=== PATIENT | female | born 1975 | race Caucasian/White ===

== ENCOUNTER 2024-01-03 03:10 | Inpatient (IN) | payer MEDICAID ==
[~2024-01-03] VITALS: Ht 170.2 cm; Wt 99.8 kg
[2024-01-03 03:24] VITALS: BP 153/90; PULSE 83; RESP 18; TEMP 98.1; O2SAT 96
[2024-01-03 03:56] LABS: APPEARANCE,URINE CLEAR (CLEAR); BILIRUBIN,URINE 2+ (NEGATIVE); BLOOD, URINE TRACE-I (NEGATIVE); COLOR,URINE YELLOW (YELLOW); LEUKOCYTE ESTERASE ,URINE NEGATIVE (NEGATIVE); NITRITE, URINE NEGATIVE (NEGATIVE); PROTEIN,URINE 1+ (NEGATIVE); UGLUCOSE NEGATIVE (NEGATIVE)
[2024-01-03 03:58] LABS: ICTOTEST POSITIVE (NEGATIVE)
[2024-01-03 04:00] LABS: BACTERIA,URINE 10-30 (MOD) /HPF (None Seen); MUCUS,URINE 1+ /LPF (None Seen); SQUAMOUS EPITHELIAL CELL,UR 0-3 (FEW) /LPF (0-3 (FEW)); WBC,URINE 0-5 /HPF (0-5)
[2024-01-03] MEDS: KETOROLAC 30 MG/ML VIAL IM ONE (04:03)
[2024-01-03 04:08] LABS: BASOPHILS % (AUTO) 0.3 % (0.0-2.0); EOSINOPHILS % (AUTO) 0.3 % (0.0-4.0); HEMATOCRIT 39.6 % (36-48); HEMOGLOBIN 13.4 g/dL (12.0-16.0); LYMPHOCYTES # (AUTO) 0.7 K/uL (2.5-16.5); LYMPHOCYTES % (AUTO) 9.5 % (20.5-51.1); MEAN CORPUSCULAR HEMOGLOBIN 27 pg (27-31); MEAN CORPUSCULAR HGB CONC 34 g/dL (33-37); MEAN CORPUSCULAR VOLUME 80.7 fL (80-94); MONOCYTES # (AUTO) 0.4 K/uL (0.8-1.0); NEUTROPHILS # (AUTO) 6.2 K/uL (1.8-7.7); NEUTROPHILS % (AUTO) 84.9 % (42.2-75.2); PLATELET COUNT (AUTO) 133 K/uL (140-450); RED CELL DISTRIBUTION WIDTH 14.3 % (11.6-13.7); WHITE BLOOD COUNT (AUTO) 7.3 K/uL (4.8-10.8)
[2024-01-03 04:24] LABS: ANION GAP 10.4 (8-16); CALCIUM 8.8 mg/dL (8.5-10.1); CARBON DIOXIDE 28.4 mmol/L (21-32); CREATININE 0.7 mg/dL (0.6-1.3); POTASSIUM 3.8 mmol/L (3.5-5.1)
[2024-01-03 04:36] LABS: ALBUMIN 3.9 g/dL (3.4-5.0); BILIRUBIN,DIRECT 2.2 mg/dL (0.0-0.3); TOTAL BILIRUBIN 3.3 mg/dL (0.0-1.0)
[2024-01-03] MEDS ORDERED: ONDANSETRON 4 MG/2 ML VIAL IVP PRN (05:20)
[2024-01-03] MEDS ORDERED: MORPHINE SULFATE 2 MG/ML SYR IVP PRN (05:20)
[2024-01-03] MEDS: LACTATED RINGERS 1,000 ML IV SCH (05:49)
[2024-01-03 08:30] VITALS: PULSE 70; RESP 18; O2SAT 99
[2024-01-03] MEDS: PANTOPRAZOLE 40 MG INJ VIAL IVP SCH ×2 (09:42→15:45)
[2024-01-03 12:00] VITALS: BP 135/93; PULSE 70; RESP 18; TEMP 97.5; O2SAT 99
[2024-01-03 16:00] VITALS: BP 144/93; PULSE 74; RESP 18; TEMP 97.7; O2SAT 99
[2024-01-03 20:00] VITALS: BP 138/89; PULSE 80; RESP 18; TEMP 97.6; O2SAT 99
[2024-01-04 04:00] VITALS: BP 138/85; PULSE 74; RESP 18; TEMP 97.8; O2SAT 97
[2024-01-04 06:55] LABS: BASOPHILS % (AUTO) 0.4 % (0.0-2.0); EOSINOPHILS # (AUTO) 0.2 K/uL (0-0.4); EOSINOPHILS % (AUTO) 2.6 % (0.0-4.0); HEMOGLOBIN 12.4 g/dL (12.0-16.0); LYMPHOCYTES # (AUTO) 1.1 K/uL (2.5-16.5); LYMPHOCYTES % (AUTO) 18.8 % (20.5-51.1); MEAN CORPUSCULAR HEMOGLOBIN 27 pg (27-31); MEAN CORPUSCULAR HGB CONC 34 g/dL (33-37); MEAN CORPUSCULAR VOLUME 81.1 fL (80-94); MONOCYTES # (AUTO) 0.4 K/uL (0.8-1.0); MONOCYTES % (AUTO) 6.6 % (1.7-9.3); NEUTROPHILS # (AUTO) 4.3 K/uL (1.8-7.7); NEUTROPHILS % (AUTO) 71.6 % (42.2-75.2); PLATELET COUNT (AUTO) 111 K/uL (140-450); RED BLOOD CELL COUNT(AUTO) 4.57 MIL/uL (4.20-5.40); RED CELL DISTRIBUTION WIDTH 14.4 % (11.6-13.7)
[2024-01-04 07:05] LABS: INR 1.11 (0.8-1.2); PARTIAL THROMBOPLASTIN TIME 23.4 secs (22-35.6); PROTHROMBIN TIME 11.6 secs (10.8-13.4)
[2024-01-04 07:12] LABS: ALBUMIN 3.2 g/dL (3.4-5.0); BILIRUBIN,DIRECT 0.4 mg/dL (0.0-0.3); TOTAL BILIRUBIN 1.3 mg/dL (0.0-1.0); TOTAL PROTEIN, SERUM 6.3 g/dL (6.4-8.2)
[2024-01-04 07:14] LABS: ALBUMIN 3.2 g/dL (3.4-5.0); ANION GAP 11.3 (8-16); CARBON DIOXIDE 25.7 mmol/L (21-32); CREATININE 0.7 mg/dL (0.6-1.3); TOTAL BILIRUBIN 1.2 mg/dL (0.0-1.0); TOTAL PROTEIN, SERUM 6.3 g/dL (6.4-8.2)
[2024-01-04 08:00] VITALS: BP 123/87; PULSE 90; RESP 20; TEMP 98; O2SAT 99
[2024-01-04] MEDS: POTASSIUM CHLORIDE 40 MEQ, LIDOCAINE 1% 25 MG in NACL 0.9% 250 ML IV SCH (09:49)
[2024-01-04 16:00] VITALS: BP 142/87; PULSE 71; RESP 18; TEMP 97.4; O2SAT 99
[2024-01-04 20:00] VITALS: BP 146/82; PULSE 72; RESP 18; TEMP 97; O2SAT 100
[2024-01-05 04:00] VITALS: BP 131/80; PULSE 81; RESP 18; TEMP 97.6; O2SAT 100
[2024-01-05 06:44] LABS: BASOPHILS % (AUTO) 0.3 % (0.0-2.0); EOSINOPHILS # (AUTO) 0.1 K/uL (0-0.4); EOSINOPHILS % (AUTO) 2.5 % (0.0-4.0); HEMATOCRIT 35.6 % (36-48); HEMOGLOBIN 12.1 g/dL (12.0-16.0); LYMPHOCYTES # (AUTO) 1.1 K/uL (2.5-16.5); LYMPHOCYTES % (AUTO) 19.5 % (20.5-51.1); MEAN CORPUSCULAR HEMOGLOBIN 27 pg (27-31); MEAN CORPUSCULAR HGB CONC 34 g/dL (33-37); MEAN CORPUSCULAR VOLUME 80.8 fL (80-94); MONOCYTES # (AUTO) 0.4 K/uL (0.8-1.0); MONOCYTES % (AUTO) 7.2 % (1.7-9.3); NEUTROPHILS # (AUTO) 3.8 K/uL (1.8-7.7); NEUTROPHILS % (AUTO) 70.5 % (42.2-75.2); PLATELET COUNT (AUTO) 105 K/uL (140-450); RED CELL DISTRIBUTION WIDTH 14.3 % (11.6-13.7); WHITE BLOOD COUNT (AUTO) 5.4 K/uL (4.8-10.8)
[2024-01-05 07:25] LABS: ALBUMIN 3.2 g/dL (3.4-5.0); ANION GAP 10.1 (8-16); CALCIUM 8.2 mg/dL (8.5-10.1); CARBON DIOXIDE 27.8 mmol/L (21-32); CREATININE 0.6 mg/dL (0.6-1.3); POTASSIUM 3.9 mmol/L (3.5-5.1); TOTAL BILIRUBIN 0.9 mg/dL (0.0-1.0); TOTAL PROTEIN, SERUM 6.4 g/dL (6.4-8.2)
[2024-01-05 07:26] LABS: ALBUMIN 3.2 g/dL (3.4-5.0); BILIRUBIN,DIRECT 0.3 mg/dL (0.0-0.3); TOTAL BILIRUBIN 0.9 mg/dL (0.0-1.0); TOTAL PROTEIN, SERUM 6.4 g/dL (6.4-8.2)
[2024-01-05 08:00] VITALS: BP 144/85; PULSE 67; RESP 20; TEMP 97.5; O2SAT 98
[2024-01-05 12:00] VITALS: BP 144/85; PULSE 67; RESP 20; TEMP 97.5; O2SAT 98
[2024-01-05] MEDS: MIDAZOLAM 2 MG/2 ML VIAL ONE (14:58)
[2024-01-05] MEDS: fentaNYL citrate 0.05 MG/ML VIAL ONE (14:59)
[2024-01-05] MEDS: ceFAZolin 2,000 MG VIAL ONE (15:00)
[2024-01-05] MEDS: LIDOCAINE/EPI 1% 1:100000 20 ML VIAL INJ ONE (15:00)
[2024-01-05] MEDS: ONDANSETRON 4 MG/2 ML VIAL ONE (15:02)
[2024-01-05] MEDS: SUCCINYLCHOLINE CHLORIDE 200 MG/10 ML VIAL IVP ONE (15:03)
[2024-01-05] MEDS: METOCLOPRAMIDE 10 MG/2 ML INJ VIAL ONE (15:03)
[2024-01-05] MEDS: PROPOFOL 200 MG/20 ML VIAL IV ONE (15:03)
[2024-01-05] MEDS: LIDOCAINE MPF 2% 100 MG/5 ML VIAL INJ ONE (15:03)
[2024-01-05] MEDS: ROCURONIUM 50 MG/5 ML VIAL IV ONE (15:03)
[2024-01-05] MEDS ORDERED: SEVOFLURANE 250 ML BTL INH ONE (15:05)
[2024-01-05] MEDS ORDERED: diphenhydrAMINE 50 MG/ML VIAL IVP PRN (17:05)
[2024-01-05] MEDS ORDERED: ONDANSETRON 4 MG/2 ML VIAL IVP PRN (17:05)
[2024-01-05] MEDS: LACTATED RINGERS 1,000 ML IV SCH (17:05)
[2024-01-05] MEDS ORDERED: MEPERIDINE 25 MG/ML SYR IVP PRN (17:05)
[2024-01-05] MEDS ORDERED: HYDROmorphone 1 MG/ML AMP IVP PRN (17:05)
[2024-01-05] MEDS: NEOSTIGMINE 1:1000 10 MG/10 ML VIAL ONE ×2 (17:08→17:10)
[2024-01-05] MEDS: GLYCOPYRROLATE 0.2 MG/ML VIAL ONE ×3 (17:17→17:18)
[2024-01-05] MEDS: KETOROLAC 30 MG/ML VIAL ONE (17:18)
[2024-01-05 20:00] VITALS: BP 112/77; PULSE 62; RESP 18; TEMP 98.4; O2SAT 96
[2024-01-06] VITALS: BP 130/72; PULSE 60; RESP 18; TEMP 98.3; O2SAT 96
[2024-01-06 04:00] VITALS: BP 133/72; PULSE 64; RESP 18; TEMP 98.5; O2SAT 96
[2024-01-06 07:14] LABS: ALBUMIN 3.2 g/dL (3.4-5.0); ANION GAP 13.3 (8-16); CARBON DIOXIDE 25.2 mmol/L (21-32); CREATININE 0.7 mg/dL (0.6-1.3); POTASSIUM 3.5 mmol/L (3.5-5.1); TOTAL BILIRUBIN 0.9 mg/dL (0.0-1.0); TOTAL PROTEIN, SERUM 6.5 g/dL (6.4-8.2)
[2024-01-06 07:28] LABS: ALBUMIN 3.2 g/dL (3.4-5.0); BILIRUBIN,DIRECT 0.4 mg/dL (0.0-0.3); TOTAL BILIRUBIN 0.9 mg/dL (0.0-1.0); TOTAL PROTEIN, SERUM 6.5 g/dL (6.4-8.2)
[2024-01-06 07:51] LABS: BASOPHILS % (AUTO) 0.2 % (0.0-2.0); EOSINOPHILS # (AUTO) 0.1 K/uL (0-0.4); EOSINOPHILS % (AUTO) 0.8 % (0.0-4.0); LYMPHOCYTES # (AUTO) 0.9 K/uL (2.5-16.5); LYMPHOCYTES % (AUTO) 14.5 % (20.5-51.1); MEAN CORPUSCULAR HEMOGLOBIN 28 pg (27-31); MEAN CORPUSCULAR HGB CONC 35 g/dL (33-37); MEAN CORPUSCULAR VOLUME 81.8 fL (80-94); MONOCYTES # (AUTO) 0.5 K/uL (0.8-1.0); MONOCYTES % (AUTO) 7.5 % (1.7-9.3); NEUTROPHILS # (AUTO) 4.9 K/uL (1.8-7.7); PLATELET COUNT (AUTO) 114 K/uL (140-450); RED BLOOD CELL COUNT(AUTO) 4.27 MIL/uL (4.20-5.40); RED CELL DISTRIBUTION WIDTH 14.1 % (11.6-13.7); WHITE BLOOD COUNT (AUTO) 6.4 K/uL (4.8-10.8)
[2024-01-06 08:00] VITALS: BP 164/100; PULSE 62; PULSE 77; RESP 18; RESP 19; TEMP 98; O2SAT 96; O2SAT 97
[2024-01-06] MEDS ORDERED: ACET-8905 PO (10:06)
[2024-01-06] MEDS ORDERED: AMOX-999 PO (10:06)
[2024-01-06 12:00] VITALS: BP 164/100; PULSE 62; RESP 18; TEMP 98; O2SAT 96
[2024-01-06] MEDS: CLONIDINE HYDROCHLORIDE 0.1 MG TAB PO PRN (12:26)
[2024-01-06 13:18] VITALS: BP 156/95; PULSE 77; RESP 19; TEMP 98
[2024-01-06 13:56] VITALS: BP 156/95; PULSE 77
== END 2024-01-06 18:49 | disposition home or self-care (01) | DRG 263 ==
LOC: MED 03:10 → MMU 05:30 → MTU 06:03
PROVIDERS: ADMIT Student in an Organized Health Care Education/Training Program; ATTEND Student in an Organized Health Care Education/Training Program
PROC: BF121ZZ Fluoroscopy of Gallbladder using Low Osmolar Contrast (ICD-10-PCS; 2024-01-05)
PROC: 0FT44ZZ Resection of Gallbladder, Percutaneous Endoscopic Approach (ICD-10-PCS; principal; 2024-01-05 15:00)
DX: K85.10 Biliary acute pancreatitis without necrosis or infection (principal); K80.70 Calculus of gallbladder and bile duct without cholecystitis without obstruction
CPT/HCPCS: 36415; 74018; 76705; 80048; 80053; 80076; 81001; 83690; 85025; 85610; 85730; 87081; 87086; 88304; 96372; 99285; C1887; J0330; J1885; J2001; J2003; J2250; J2270; J2405; J2470; J2704; J2710; J2765; J3010; J3480; J3490; J7030; J7120; Q0092